=== PATIENT | male | born 1945 | race American Indian/Alaskan Native ===

== ENCOUNTER 2021-08-08 13:59 | Outpatient (CLI) | payer OTHER | END 2021-08-08 14:11 | disposition home or self-care (01) | LOC: SONOGRAMA 13:59 | PROVIDERS: ATTEND Family Medicine | DX: M71.58 Other bursitis, not elsewhere classified, other site (principal); M25.552 Pain in left hip ==

== ENCOUNTER 2023-02-05 13:19 | Outpatient (CLI) | payer OTHER | END 2023-02-05 13:24 | disposition home or self-care (01) | LOC: SONOGRAMA 13:19 | PROVIDERS: ATTEND Family Medicine | DX: M25.511 Pain in right shoulder (principal); M25.512 Pain in left shoulder ==